=== PATIENT | female | born 1935 | race Caucasian/White ===

== ENCOUNTER 2017-02-28 13:22 | Outpatient (CLI) | payer MEDICARE, OTHER ==
[~2017-02-28] VITALS: Ht 142.2 cm; Wt 63.6 kg
[~2017-02-28 13:22] MED LIST: CALCIUM 600 +1 EAC3 PO; ENTOCORT EC3 MG PO; LUTEIN20 MG PO; MULTIPLE VITAMI1 TA1 PO; OXYBUTYNIN CHLOR5 MG PO; PRILOSEC20 MG PO; SLEEP AID25 M1 PO; TOPROL XL25 MG PO; ULTRAM50 MG PO; VITAMIN D10000 UNI1 PO; VITAMIN D5000 UNIT PO; ZOCOR80 MG PO
[2017-02-28 14:51] VITALS: BP 138/74; Ht 142.2 cm; Wt 63.6 kg
--- NOTE | 2017-02-28 14:53 | NUR ---
1448-STARTED IV TO RIGHT HAND TIMES ONE ATTEMPT WITH 22G CATHETER. STARTED INFUSION ON PUMP OVER 30 MINUTES.
--- NOTE | 2017-02-28 17:01 | NUR ---
1510 INFUSION HAS COMPLETED, IV DC'D WITH CATH INTACT. RELEASED IN WC WITH ESCORT.
== END 2017-02-28 15:15 | disposition home or self-care (01) ==
LOC: D.OPS 13:22
DX: M81.0 Age-related osteoporosis without current pathological fracture (principal)

== ENCOUNTER → 2017-06-16 15:35 | Outpatient (CLI) | payer MEDICARE, OTHER ==
[2017-02-28 14:51] VITALS: BMI 31.4
[2017-06-16 16:03] LABS: APPEARANCE HAZY (CLEAR); COLOR YELLOW (YELLOW)
[2017-06-16 16:04] LABS: BILIRUBIN NEGATIVE (NEGATIVE); GLUCOSE NEGATIVE (NEGATIVE); KETONE NEGATIVE (NEGATIVE); NITRITE NEGATIVE (NEGATIVE); PROTEIN NEGATIVE (NEGATIVE); SPECIFIC GRAVITY 1.025 (1.005-1.020); UROBILINOGEN NORMAL (NORMAL)
[2017-06-16 16:05] LABS: BACTERIA MANY /hpf (NONE SEEN); EPITHELIAL CELLS OCC /hpf (0-5); WHITE CELLS - URINE 25-50 /hpf (0-5)
== END | disposition home or self-care (01) ==
LOC: D.LABREF 15:35
PROVIDERS: Family Medicine
DX: R30.9 Painful micturition, unspecified (principal); Z87.440 Personal history of urinary (tract) infections